=== PATIENT | female | born 1940 | race Caucasian/White ===

== ENCOUNTER 2016-11-03 08:33 | Emergency (ER) | payer MEDICARE ==
[2016-11-03 09:30] LABS: ABSOLUTE NEUTROPHIL COUNT 9.6 K/mm3 (1.8-7.7); BASO # 0.1 K/mm3 (0.0-0.2); BASO % 0.5 % (0.2-1.0); EOS # 0.1 (0.0-0.5); EOS % 0.7 % (0.9-2.9); HEMATOCRIT 34.5 % (37.0-47.0); HEMOGLOBIN 12.2 gm/l (12.0-16.0); IMM NEUT # 0.1 K/mm3 (0-0.2); IMM NEUT% 0.6 % (0-1); LYMPH # 1.5 (1.0-4.8); LYMPH % 12.6 % (15-45); MEAN CELL VOLUME 90.1 fl (81.0-99.0); MEAN CORPUSCULAR HEMOGLOBIN 31.9 pg (27.0-31.0); MEAN CORPUSCULAR HGB CONC 35.4 g/dl (33.0-37.0); MEAN PLATELET VOLUME 8.7 fl (7.4-10.4); MONO # 0.7 (0.0-0.8); MONO % 5.7 % (4-12); NEUT % 79.9 % (43-75); PLATELET COUNT 360 K/mm3 (130-400); RED CELL DISTRIBUTION WIDTH 11.5 % (11.5-14.5)
[2016-11-03 09:52] LABS: ALB/GLOB RATIO 1.1 (>1.0); ALBUMIN 3.7 gm/dL (3.5-5.7); CALCIUM 9.4 mg/dL (8.6-10.3)
--- NOTE | 2016-11-03 09:57 | RAD ---
LEFT HIP AND AP PELVIS SERIES HISTORY: Status post fall with left hip pain.. Frontal view of the pelvis with frontal and frog-leg lateral views of the left hip. PELVIC RING: Grossly intact. HIP ALIGNMENT: Grossly unremarkable. HIP JOINT SPACES: Preserved. FRACTURE: No displaced fracture identified. BONE DENSITY: Diffuse osteopenia. LUMBAR SPINE: Findings of lower lumbar disc and facet degeneration. IMPRESSION: No malalignment or displaced acute fracture noted. Lower lumbar spondylosis.
[2016-11-03 10:33] LABS: SPECIFIC GRAVITY 1.015 (1.001-1.030); URINE APPEARANCE CLEAR; URINE BILIRUBIN NEGATIVE (NEGATIVE); URINE BLOOD NEGATIVE (NEGATIVE); URINE COLOR YELLOW; URINE GLUCOSE (UA) NEGATIVE (NEGATIVE); URINE LEUKOCYTE ESTERASE NEGATIVE (NEGATIVE); URINE NITRITE NEGATIVE (NEGATIVE); URINE PROTEIN NEGATIVE (NEGATIVE); URINE UROBILINOGEN NORMAL (0-1 mg/dl)
--- NOTE | 2016-11-03 10:50 | CT ---
CT PELVIS WITHOUT CONTRAST HISTORY: Left hip pain status post ground level fall. CT imaging was acquired from the upper L4 level through the proximal thighs. FINDINGS: Pelvic ring: Contour abnormality compatible with nondisplaced left inferior pubic ramus fracture. There is also contour abnormality compatible with nondisplaced left sacral alar fracture. Nondisplaced mildly comminuted fracture of the right-sided pubis is seen along the pubic symphysis. Minor degeneration of sacroiliac joints without erosive lesions. Proximal femurs: No fracture identified. Pelvis: Findings of sigmoid diverticulosis without diverticulitis. No free fluid or adnexal mass effect. Lumbar spine: Lower lumbar facet degeneration with disc bulge at L4-5 level. IMPRESSION: Nondisplaced bilateral pubic fractures involving the right parasymphyseal pubis as well as the left inferior pubic ramus. Nondisplaced left sacral alar fracture. No fracture of the proximal femurs identified Sigmoid diverticulosis without diverticulitis. Findings of lumbar spondylosis. Findings discussed with Dr. Manrique of the Emergency Medicine clinical service on 11/03/2016 at 1046 hours.
== END 2016-11-03 11:46 | disposition home or self-care (01) ==
LOC: ED 08:33
DX: S32.9XXA Fracture of unspecified parts of lumbosacral spine and pelvis, initial encounter for closed fracture (principal); R55 Syncope and collapse; W06.XXXA Fall from bed, initial encounter; Y92.003 Bedroom of unspecified non-institutional (private) residence as the place of occurrence of the external cause